=== PATIENT | female | born 1955 | race Caucasian/White ===

== ENCOUNTER 2016-12-06 07:41 | Day surgery (SDC) | payer BC ==
[~2016-12-06 07:41] MED LIST: Lactated Ringers 1,000 ML IV SCH
[2016-12-06] MEDS ORDERED: fentaNYL 100 MCG/2 ML SDV ONE (08:37)
[2016-12-06] MEDS ORDERED: Propofol 200 MG/20 ML SDV ONE ×2 (08:37→08:44)
[2016-12-06 10:44] VITALS: BP 158/81
--- NOTE | 2016-12-06 15:17 | OR ---
PREOPERATIVE DIAGNOSES: Family history of colon cancer/severe constipation. POSTOPERATIVE DIAGNOSIS: Essentially normal colonoscopic exam. PROCEDURE PROPOSED: Total flexible colonoscopy. PROCEDURE DONE: Total flexible colonoscopy. INDICATIONS: This is a 61-year-old female comes in for colonoscopic exam. She has a family history of mother having had colon cancer. Her last examination was about 11 years ago. She also has trouble with severe constipation and has had that problem for entire life. She basically has to take 2 enemas a week to get her bowels to move. TECHNIQUE: The patient was brought to the endoscopy suite, placed in the left lateral decubitus position. She was sedated with propofol per APPLIANCE SERVICE TECHNICIAN. The flexible video colonoscope was then passed transanally and under visualization, advanced to the cecum. Examination revealed normal ascending, transverse, descending sigmoid and rectal colon. There was no evidence of any obstruction, colitis, diverticulosis, polyps, every other abnormalities. She did have a few chunks of solid stool and a couple areas that was able to lavage and kind of look behind those areas. Otherwise, they seemed to plug up the scope with suction. A thorough examination was obtained and the scope was then withdrawn. She tolerated the procedure well. IMPRESSION: 1. Essentially normal colonoscopic exam. 2. Severe constipation. 3. Family history of colon cancer - mother. PLAN: She should continue with her present regimen which seems to be working okay for her and she should consider colonoscopies every 5 years due to her family history. SCM: 12/06/2016 09:59:12 MODL: 12/06/2016 14:55:50 /[id number]
== END 2016-12-06 11:10 | disposition home or self-care (01) ==
LOC: VM.SDS 07:41
PROVIDERS: ATTEND Surgery
DX: K59.00 Constipation, unspecified (principal); F32.9 Major depressive disorder, single episode, unspecified; Z98.890 Other specified postprocedural states; Z79.899 Other long term (current) drug therapy
CPT/HCPCS: 45378; J2704; J3010; J7120

== ENCOUNTER 2022-07-04 09:04 | Day surgery (SDC) | payer MEDICARE, OTHER ==
[~2022-07-04 09:04] MED LIST changes: +Sodium Chloride 0.9% 10 ML Syringe FLUSH PRN
[2022-07-04] MEDS ORDERED: fentaNYL 100 MCG/2 ML SDV ONE (10:14)
[2022-07-04] MEDS ORDERED: Propofol 200 MG/20 ML SDV ONE ×2 (10:14→10:31)
[2022-07-04 12:29] VITALS: BP 154/68; PULSE 66
== END 2022-07-04 12:31 | disposition home or self-care (01) ==
LOC: VM.SDS 09:04
PROVIDERS: ATTEND Surgery
DX: Z12.11 Encounter for screening for malignant neoplasm of colon (principal); D12.6 Benign neoplasm of colon, unspecified; F33.2 Major depressive disorder, recurrent severe without psychotic features; Z98.890 Other specified postprocedural states; Z79.899 Other long term (current) drug therapy; Z80.0 Family history of malignant neoplasm of digestive organs
CPT/HCPCS: 00812; 88305; J2704; J3010; J7120